=== PATIENT | female | born 1985 | race Caucasian/White ===

== ENCOUNTER 2021-06-20 21:58 | Emergency (ER) | payer MEDICAID ==
[2021-06-20 22:12] VITALS: BP 124/63
[2021-06-20] MEDS ORDERED: CHERRY SYRUP 10 ML UDC PO ONE (22:46)
[2021-06-20] MEDS ORDERED: DEXAMETHASONE 10 MG/ML VIAL PO STA (22:46)
[2021-06-20] MEDS ORDERED: KETOROLAC 30 MG/ML VIAL IM STA (22:46)
[2021-06-20] MEDS ORDERED: diphenhydrAMINE INJ 50 MG/ML VIAL IM STA (22:47)
[2021-06-20] MEDS ORDERED: LORazepam 2 MG/ML VIAL IM STA (23:27)
[2021-06-21] MEDS: HYDROcod/ACETAM 5/325 MG TABLET PO STA ×2 (00:09→00:12)
[2021-06-21] MEDS: HYDROcod/ACET 5/325 Prepack 4 PO STA ×2 (00:09→00:12)
--- NOTE | 2021-06-21 00:12 | XRAY Report ---
PROCEDURE: Forearm LT INDICATIONS: pain to forearm with movement TECHNIQUE: 2 views of the forearm were acquired. COMPARISON: None FINDINGS: Bones: No fractures or dislocations. No suspicious bony lesions. Soft tissues: No suspicious soft tissue calcifications or masses. IMPRESSION: Intact left forearm. Reviewed by: Teetee Valverde MD on 06/21/2021 12:11 AM PST Approved by: Teetee Valverde MD on 06/21/2021 12:11 AM PST Station ID: [id number]
[2021-06-21] MEDS ORDERED: oxyCODONE 5 MG TABLET PO STA (00:20)
[2021-06-21] MEDS ORDERED: oxyCODONE/ACET 5/325 Prepack 4 PO STA (00:20)
--- NOTE | 2021-06-21 00:24 | ED Physician Documentation ---
History of Present Illness - Stated complaint Stated Complaint: LT ARM PX - Chief complaint Chief Complaint: General - History obtained from History obtained from: Patient - History of Present Illness Timing: How many days ago (2) - Additonal information Additional information: Luana Larsen is a 36-year-old female who has a stress-induced seizure disorder she will have complex partial seizure and she last had a complex partial seizure 3 years ago involving her left arm and at that time she had complete flexion of the arm and resulting in a severe tendinitis that took quite some time to improve. She was playing with her dog and throwing a ball several days ago when she had recurrence of her symptoms she is now having worsening symptoms and is having difficulty with pain and with any movement of her arm. Severe pain, out of proportion to any injury. 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 - Present Medications Home Medications: Ambulatory Orders Medication Instructions Recorded Confirmed Oxycodone HCl/Acetaminophen 1 - 2 each PO Q6H PRN #14 tablet 06/21/21 [Percocet 5-325 mg Tablet] - Allergies Allergies/Adverse Reactions: Allergies Allergy/AdvReac Type Severity Reaction Status Date / Time azithromycin Allergy Hives Verified 06/20/21 22:14 penicillin G Allergy Hives Verified 06/20/21 22:14 promethazine [From Phenergan] Allergy Hallucinati Verified 06/20/21 22:14 ons shellfish derived Allergy Respiratory Verified 06/20/21 22:14 - Social History Does the pt smoke?: No Smoking Status: Never smoker Does the pt drink ETOH?: Yes Does the pt have substance abuse?: No Substance Use and Type: Marijuana - Immunizations Immunizations are current?: Yes - POLST Patient has POLST: No PD ED PE NORMAL - Vitals Vital signs reviewed: Yes (normal) - General General: Alert and oriented X 3, Well developed/nourished, Other (emotional and in tears with pain ) - HEENT HEENT: Atraumatic, PERRL, EOMI - Neck Neck: Supple, no meningeal sign - Respiratory Respiratory: No respiratory distress - Derm Derm: Normal color, Warm and dry, No rash - Extremities Extremities: No deformity, No edema, Other (There is point tenderness to the forearm over the brachial radialis and with any flexion extension of the wrist there is pain radiating to this area as well flexion extension rotation of the forearm again pain to the right brachial radialis. 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, No motor deficit, No sensory deficit, Normal speech Eye Opening: Spontaneous Motor: Obeys Commands Verbal: Oriented GCS Score: 15 - Psych Psych: Normal mood, Normal affect Results - Vitals Vitals: Vital Signs - 24 hr 06/20/21 06/21/21 22:03 00:58 Temperature 37 C Heart Rate 91 Respiratory 16 18 Rate Blood Pressure 124/63 O2 Saturation 96 Oxygen O2 Source Room air - Rads (name of study) forearm Radiology: Prelim report reviewed (Impression: Intact left forearm), EMP read indepedently, See rad report PD MEDICAL DECISION MAKING - ED course Complexity details: reviewed results, re-evaluated patient, considered differential, d/w patient ED course: 36-year-old female with an acute tendinitis has most of her symptoms centered around the brachial radialis and they seemed a bit out of proportion to any injury. She is administered dexamethasone and Toradol and benadryl without much relief. She has panic and is administered ativan. She is subsequently administered percocet PO. Departure - Departure Disposition: 01 Home, Self Care Clinical Impression: Forearm tendonitis Condition: Stable Instructions: Tendonitis and Tenosynovitis Follow-Up: Your, doctor [Other] Prescriptions: Oxycodone HCl/Acetaminophen [Percocet 5-325 mg Tablet] 1 - 2 each PO Q6H PRN #14 tablet PRN Reason: pain Comments: Luana, today it looks like you have some tendinitis that has flared up in your forearm. We have given you a dose of dexamethasone which may help for 2 days. If you find you get good relief of this and then have worsening of your symptoms again it would be reasonable to ask your doctor about a short course of prednisone. A prescription for Percocet has been E scribed to [facility] in [place]. Discharge Date/Time: 06/21/21 01:00
== END 2021-06-21 01:00 | disposition home or self-care (01) ==
LOC: ED 21:58
DX: M77.8 Other enthesopathies, not elsewhere classified (principal); M79.632 Pain in left forearm; F41.0 Panic disorder [episodic paroxysmal anxiety]
CPT/HCPCS: 73090; 96372; 99283; 99284; A9270; J1200; J2060

== ENCOUNTER 2021-07-16 20:44 | Emergency (ER) | payer MEDICAID ==
[2021-07-16 21:15] LABS: BASOPHILS % (AUTO) 0.7 %; EOSINOPHILS # (AUTO) 0.1 10^3/uL (0.0-0.7); EOSINOPHILS % (AUTO) 1.3 %; HCT - HEMATOCRIT 35.6 % (37.0-47.0); HGB - HEMOGLOBIN 12.3 g/dL (12.0-16.0); LYMPHOCYTES # (AUTO) 1.6 10^3/uL (1.5-3.5); MEAN CORPUSCULAR HEMOGLOBIN 30.8 pg (27.0-31.0); MEAN CORPUSCULAR HGB CONC 34.6 g/dL (32.0-36.0); MEAN PLATELET VOLUME 9.2 fL (7.9-10.8); MONOCYTES # (AUTO) 0.4 10^3/uL (0.0-1.0); MONOCYTES % (AUTO) 8.1 %; NEUTROPHILS # (AUTO) 3.2 10^3/uL (1.5-6.6); NEUTROPHILS % (AUTO) 59.3 %; PLT - PLATELET COUNT 245 10^3/uL (130-450); RED CELL DISTRIBUTION WIDTH 12.2 % (12.0-15.0); WHITE BLOOD COUNT 5.4 x10^3/uL (4.8-10.8)
[2021-07-16 21:27] LABS: ALBUMIN 4.3 g/dL (3.2-5.5); ALBUMIN/GLOBULIN RATIO 1.3 (1.0-2.2); BILIRUBIN,TOTAL 0.4 mg/dL (0.2-1.0); CALCIUM 9.1 mg/dL (8.5-10.3); CREATININE 0.9 mg/dL (0.4-1.0); TOTAL PROTEIN 7.5 g/dL (6.7-8.2)
[2021-07-16 21:37] LABS: HCG UR QUAL NEGATIVE
[2021-07-16] MEDS ORDERED: oxyCODONE 5 MG TABLET PO STA (21:52)
--- NOTE | 2021-07-16 21:54 | ED Physician Documentation ---
History of Present Illness - Stated complaint Stated Complaint: FEMALE /BLEED - Chief complaint Chief Complaint: Abd Pain - History obtained from History obtained from: Patient - Additonal information Additional information: 36-year-old woman With past medical history of ovarian cysts, heavy menstrual bleeding for the past 2 years after having her tubes removed in [place], presents with heavy menses since yesterday morning. Patient states that she gets her period regularly every 30 days and her period started on time yesterday. She noticed that she was passing blood clots and started to e xperience gradual onset moderate severity bilateral lower abdominal cramping, worse on the right versus the left, radiating to the back that is consistent with her menses over the past couple years. Improved with oxycodone.Denies urinary symptoms.Patient has a past surgical history of and D&C. She had her tubes removed "because I was done having kids". No PCP or tobacco grower at present. denies dizziness, nausea, other symptoms. Review of Systems Ten Systems: 10 systems reviewed and negative Constitutional: denies: Fever, Chills GI: reports: Abdominal Pain. denies: Nausea, Vomiting, Constipation, Diarrhea : reports: Vaginal bleeding. 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: No Smoking Status: Never smoker Does the pt drink ETOH?: Yes Does the pt have substance abuse?: No - Immunizations Immunizations are current?: Yes - POLST Patient has POLST: No PD ED PE NORMAL - Vitals Vital signs reviewed: Yes - General General: Alert and oriented X 3, No acute distress, Well developed/nourished - HEENT HEENT: Atraumatic, PERRL, EOMI - Neck Neck: Supple, no meningeal sign - Cardiac Cardiac: RRR - Respiratory Respiratory: No respiratory distress, Clear bilaterally - Abdomen Abdomen: Non tender, Non distended - Back Back: No CVA TTP - Derm Derm: Normal color, Warm and dry - Extremities Extremities: No deformity - Neuro Neuro: Alert and oriented X 3, No motor deficit, No sensory deficit - Psych Psych: Normal mood, Normal affect Results - Vitals Vitals: Vital Signs - 24 hr 07/16/21 07/16/21 20:49 21:31 Temperature 36.5 C Heart Rate 86 82 Respiratory 16 18 Rate Blood Pressure 96/54 L 115/75 O2 Saturation 94 98 Oxygen O2 Source Room air - Labs Labs: Laboratory Tests 07/16/21 07/16/21 07/16/21 20:58 21:04 21:04 WBC 5.4 RBC 4.00 L Hgb 12.3 Hct 35.6 L MCV 89.0 MCH 30.8 MCHC 34.6 RDW 12.2 Plt Count 245 MPV 9.2 Neut # (Auto) 3.2 Lymph # (Auto) 1.6 Storey # (Auto) 0.4 Eos # (Auto) 0.1 Baso # (Auto) 0.0 Absolute Nucleated RBC 0.00 Nucleated RBC % 0.0 Sodium 135 Potassium 4.0 Chloride 102 Carbon Dioxide 25 Anion Gap 8.0 BUN 11 Creatinine 0.9 Estimated GFR (MDRD) 71 L Glucose 95 Calcium 9.1 Total Bilirubin 0.4 AST 18 ALT 15 Alkaline Phosphatase 53 Total Protein 7.5 Albumin 4.3 Globulin 3.2 Albumin/Globulin Ratio 1.3 Lipase 26 Urine HCG, Qual NEGATIVE PD MEDICAL DECISION MAKING - ED course ED course: 36-year-old woman presents with heavy menses and abdominal cramping over the past 2 years, starting again yesterday morning. Patient has normal vital signs and normal exam as well as normal hemoglobin level. Advised her to follow-up with Dr. Cohen. Return precautions given. Departure - Departure Disposition: 01 Home, Self Care Clinical Impression: Episode of heavy vaginal bleeding, Abdominal cramping Instructions: ED Bleeding Menstrual Heavy Follow-Up: Lexi Cohen MD [Provider Admit Priv/Credential] - Comments: You are seen in the emergency department for evaluation of heavy menstrual bleeding. Your blood levels were normal and your vital signs are normal. Please follow-up with Dr. Cohen, our COUNTERPERSON at [facility]. You can also follow-up with any other COUNTERPERSON. Return to the emergency department if you have new or worsening symptoms or other concerns. Take ibuprofen 400 to 600 mg every 6 hours as needed for pain.
[2021-07-16 22:00] VITALS: BP 112/71
== END 2021-07-16 22:04 | disposition home or self-care (01) ==
LOC: ED 20:44
DX: N92.0 Excessive and frequent menstruation with regular cycle (principal); R10.31 Right lower quadrant pain; R10.32 Left lower quadrant pain
CPT/HCPCS: 36415; 80053; 81025; 83690; 85025; 99283; 99284; A9270

== ENCOUNTER 2022-01-05 14:13 | Emergency (ER) | payer MEDICAID ==
[2022-01-05 14:29] VITALS: BP 105/69
--- NOTE | 2022-01-05 15:12 | XRAY Report ---
PROCEDURE: Hand 3 View LT INDICATIONS: Trauma TECHNIQUE: 3 views of the hand(s) acquired. COMPARISON: None FINDINGS: Bones: No fractures or dislocations. No suspicious bony lesions. Soft tissues: No suspicious soft tissue calcifications. IMPRESSION: No acute left hand fracture or dislocation. Reviewed by: Vance Medrano MD on 01/05/2022 3:10 PM PDT Approved by: Vance Medrano MD on 01/05/2022 3:10 PM PDT Station ID: [id number]
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
== END 2022-01-05 15:46 | disposition home or self-care (01) ==
LOC: ED 14:13
DX: S60.222A Contusion of left hand, initial encounter (principal); W51.XXXA Accidental striking against or bumped into by another person, initial encounter; Y93.89 Activity, other specified
CPT/HCPCS: 99282; 99283

== ENCOUNTER 2022-03-29 09:59 | Emergency (ER) | payer MEDICAID ==
--- NOTE | 2022-03-29 10:54 | XRAY Report ---
PROCEDURE: Chest 1 View X-Ray INDICATIONS: SOA TECHNIQUE: One view of the chest was acquired. COMPARISON: None FINDINGS: Surgical changes and devices: None. Lungs and pleura: No pleural effusions or pneumothorax. Lungs are clear. Mediastinum: Mediastinal contours appear normal. Heart size is normal. Bones and chest wall: No suspicious bony lesions. Overlying soft tissues appear unremarkable. IMPRESSION: No acute pulmonary process. Reviewed by: Kerri Whiting MD on 03/29/2022 10:53 AM PDT Approved by: Kerri Whiting MD on 03/29/2022 10:53 AM PDT Station ID: [id number]
[2022-03-29] MEDS ORDERED: KETOROLAC 60 MG/2 ML VIAL IM STA (11:15)
[2022-03-29] MEDS ORDERED: ONDANSETRON ODT 4 MG TABLET TL STA (11:15)
[2022-03-29] MEDS ORDERED: LORazepam 1 MG TABLET PO STA (11:15)
--- NOTE | 2022-03-29 11:19 | ED Physician Documentation ---
History of Present Illness - Stated complaint Stated Complaint: C+/SOA/CP - Chief complaint Chief Complaint: Resp - History obtained from History obtained from: Patient - History of Present Illness Timing: How many days ago (2) Pain level max: 8 Pain level now: 8 - Additonal information Additional information: Patient is a 37-year-old female tested positive for COVID 2 days ago. She states that she has sharp chest pain with coughing. She states that she will have coughing fits where it causes her to vomit. She has had fevers and chills as well. The pain does not radiate. Dry cough. No wheezing. No stridor. She has had COVID vaccinations previously, last was about 1.5 years ago Patient is not , breast-feeding or trying to become . 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 - Present Medications Home Medications: Ambulatory Orders Medication Instructions Recorded Confirmed Fluoxetine HCl [Prozac] 40 mg PO DAILY #120 cap 02/03/22 03/29/22 lamoTRIgine [Lamictal] 200 mg PO BID #240 tablet 02/03/22 03/29/22 Benzonatate [Tessalon] 200 mg PO TID PRN #30 cap 03/29/22 Gabapentin [Neurontin] 600 mg PO BID 03/29/22 03/29/22 LORazepam [Ativan] 0.5 mg PO Q6H PRN #10 tablet 03/29/22 Meloxicam [Mobic] 7.5 mg PO BID PRN #20 tablet 03/29/22 Ondansetron Odt [Zofran] 4 mg TL Q6H PRN #10 tablet 03/29/22 - Allergies Allergies/Adverse Reactions: Allergies Allergy/AdvReac Type Severity Reaction Status Date / Time azithromycin Allergy Hives Verified 03/29/22 10:20 penicillin G Allergy Hives Verified 03/29/22 10:20 promethazine [From Phenergan] Allergy Hallucinati Verified 03/29/22 10:20 ons shellfish derived Allergy Respiratory Verified 03/29/22 10:20 - Social History Does the pt smoke?: No Smoking Status: Never smoker Does the pt drink ETOH?: Yes Does the pt have substance abuse?: No - Immunizations Immunizations are current?: Yes - POLST Patient has POLST: No PD ED PE NORMAL - Vitals Vital signs reviewed: Yes - General General: Alert and oriented X 3, No acute distress - HEENT HEENT: Ears normal, Moist mucous membranes, Pharynx benign - Neck Neck: Supple, no meningeal sign, No adenopathy - Cardiac Cardiac: RRR, Strong equal pulses - Respiratory Respiratory: No respiratory distress, Clear bilaterally - Abdomen Abdomen: Soft, Non tender, Non distended - Derm Derm: Warm and dry - Extremities Extremities: No edema, No calf tenderness / cord - Neuro Neuro: Alert and oriented X 3 Results - Vitals Vitals: Vital Signs - 24 hr 03/29/22 03/29/22 10:20 11:32 Temperature 37.6 C Heart Rate 86 74 Respiratory 20 12 Rate Blood Pressure 103/73 122/76 O2 Saturation 98 100 Oxygen O2 Source Room air - Rads (name of study) cxr Radiology: Final report received, EMP read contemporaneously, See rad report (no acute abnormality) PD MEDICAL DECISION MAKING - ED course Complexity details: reviewed results, re-evaluated patient, considered differential (No ST elevation DE, no aortic dissection, no PE, no tension pneumothorax, no aortic aneurysm), d/w patient ED course: Patient with chest pain with coughing. She is positive for COVID. Symptoms are not consistent with acute coronary syndrome. Not consistent with pulmonary embolus. No evidence of myocarditis or pericarditis. The pain is with coughing, sharp. Patient is very well-appearing, nontoxic. Discussed antiviral medication but will hold this at this time. We will continue supportive care and have her follow-up closely with her doctor for further care. Patient counseled regarding signs and symptoms for which I believe and urgent re- evaluation would be necessary. Patient with good understanding of and agreement to plan and is comfortable going home at this time This document was made in part using voice recognition software. While efforts are made to proofread this document, sound alike and grammatical errors may occur. Patient also states that she is out of her Ativan and is requesting a small amount of Ativan to help with her anxiety at home. Departure - Departure Disposition: Home, Self Care Clinical Impression: COVID, Anxiety Condition: Good Instructions: ED Viral Syndrome Follow-Up: your,doctor in 1 week [Other] Prescriptions: LORazepam [Ativan] 0.5 mg PO Q6H PRN #10 tablet PRN Reason: Anxiety Meloxicam [Mobic] 7.5 mg PO BID PRN #20 tablet PRN Reason: Pain Benzonatate [Tessalon] 200 mg PO TID PRN #30 cap PRN Reason: Cough Ondansetron Odt [Zofran] 4 mg TL Q6H PRN #10 tablet PRN Reason: Nausea / Vomiting Comments: Use the medications as prescribed. Please follow-up with your doctor for further care. Return if you worsen. Your prescriptions were sent to [facility] in [place]. Isolation precautions for COVID Day 0 is your first day of symptoms or a positive viral test. Day 1 is the first full day after your symptoms developed or your test specimen was collected. If you have COVID-19 or have symptoms, isolate for at least 5 days. IF YOU: Tested positive for COVID-19 or have symptoms, regardless of vaccination status Stay home for at least 5 days Stay home for 5 days and isolate from others in your home. Wear a well-fitting mask if you must be around others in your home. Do not travel. Ending isolation if you had symptoms End isolation after 5 full days if you are fever-free for 24 hours (without the use of fever-reducing medication) and your symptoms are improving. Ending isolation if you did NOT have symptoms End isolation after at least 5 full days after your positive test. If you got very sick from COVID-19 or have a weakened immune system You should isolate for at least 10 days. Consult your doctor before ending isolation. Take precautions until day 10 Wear a well-fitting mask Wear a well-fitting mask for 10 full days any time you are around others inside your home or in public. Do not go to places where you are unable to wear a mask. Do not travel Do not travel until a full 10 days after your symptoms started or the date your positive test was taken if you had no symptoms. Avoid being around people who are more likely to get very sick from COVID-19. Discharge Date/Time: 03/29/22 11:45
[2022-03-29 11:33] VITALS: BP 122/76
== END 2022-03-29 11:45 | disposition home or self-care (01) ==
LOC: ED 09:59
DX: U07.1 COVID-19 (principal); R07.9 Chest pain, unspecified; F41.9 Anxiety disorder, unspecified
CPT/HCPCS: 71045; 96372; 99284; J8499; Q0162

== ENCOUNTER 2022-04-22 12:24 | Emergency (ER) | payer MEDICAID ==
[2022-04-22 12:39] LABS: BASOPHILS % (AUTO) 0.6 %; EOSINOPHILS % (AUTO) 0.8 %; HCT - HEMATOCRIT 36.5 % (37.0-47.0); HGB - HEMOGLOBIN 12.3 g/dL (12.0-16.0); LYMPHOCYTES # (AUTO) 1.3 10^3/uL (1.5-3.5); LYMPHOCYTES % (AUTO) 23.7 %; MEAN CORPUSCULAR HEMOGLOBIN 31.5 pg (27.0-31.0); MEAN CORPUSCULAR HGB CONC 33.7 g/dL (32.0-36.0); MEAN CORPUSCULAR VOLUME 93.4 fL (81.0-99.0); MONOCYTES # (AUTO) 0.4 10^3/uL (0.0-1.0); MONOCYTES % (AUTO) 7.3 %; NEUTROPHILS # (AUTO) 3.6 10^3/uL (1.5-6.6); NEUTROPHILS % (AUTO) 67.4 %; PLT - PLATELET COUNT 251 10^3/uL (130-450); RED BLOOD COUNT 3.91 10^6/uL (4.20-5.40); RED CELL DISTRIBUTION WIDTH 13.4 % (12.0-15.0); WHITE BLOOD COUNT 5.3 x10^3/uL (4.8-10.8)
[2022-04-22 12:55] LABS: ALBUMIN 4.5 g/dL (3.2-5.5); ALBUMIN/GLOBULIN RATIO 1.5 (1.0-2.2); BILIRUBIN,TOTAL 0.5 mg/dL (0.2-1.0); CALCIUM 9.7 mg/dL (8.5-10.3); CREATININE 0.9 mg/dL (0.4-1.0); POTASSIUM 3.8 mmol/L (3.5-5.0); TOTAL PROTEIN 7.6 g/dL (6.7-8.2)
[2022-04-22] MEDS ORDERED: HYDROmorphone 1 MG/ML CARPUJECT IVP STA (13:41)
[2022-04-22] MEDS ORDERED: HYDROmorphone 1 MG/ML CARPUJECT IM STA (13:42)
--- NOTE | 2022-04-22 13:45 | ED Physician Documentation ---
History of Present Illness - Stated complaint Stated Complaint: ABD PX - Chief complaint Chief Complaint: Abd Pain - Additonal information Additional information: 37-year-old female presents emergency department for evaluation of pelvic cramp ing and vaginal bleeding. She reports that she has a history of ovarian cyst. She also has a history of a tubal ligation. She states that when she has bad ovarian cyst she has heavier periods. She had vaginal bleeding last night and states that she is saturating a menstrual pad an hour. No fevers or vomiting. She does appear uncomfortable in the room. Does not have an OB or primary care here in [facility] but is scheduled to establish with one next month. Patient does show me a picture on her cell phone of blood clots in the toilet which appear to be a small volume in nature and what I would assume to be typical with menstrual bleeding Review of Systems Constitutional: denies: Fever, Chills Throat: reports: Reviewed and negative Cardiac: reports: Reviewed and negative Respiratory: reports: Reviewed and negative GI: reports: Abdominal Pain. denies: Nausea, Vomiting : reports: LMP (03/26/2022), Vaginal bleeding. 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 - Present Medications Home Medications: Ambulatory Orders Medication Instructions Recorded Confirmed Fluoxetine HCl [Prozac] 40 mg PO DAILY #120 cap 02/03/22 03/29/22 lamoTRIgine [Lamictal] 200 mg PO BID #240 tablet 02/03/22 03/29/22 Benzonatate [Tessalon] 200 mg PO TID PRN #30 cap 03/29/22 Gabapentin [Neurontin] 600 mg PO BID 03/29/22 03/29/22 LORazepam [Ativan] 0.5 mg PO Q6H PRN #10 tablet 03/29/22 Meloxicam [Mobic] 7.5 mg PO BID PRN #20 tablet 03/29/22 Ondansetron Odt [Zofran] 4 mg TL Q6H PRN #10 tablet 03/29/22 - Allergies Allergies/Adverse Reactions: Allergies Allergy/AdvReac Type Severity Reaction Status Date / Time azithromycin Allergy Hives Verified 04/22/22 12:30 levetiracetam [From Keppra] Allergy Anxiety Verified 04/22/22 12:30 penicillin G Allergy Hives Verified 04/22/22 12:30 promethazine [From Phenergan] Allergy Hallucinati Verified 04/22/22 12:30 ons shellfish derived Allergy Respiratory Verified 04/22/22 12:30 - Social History Does the pt smoke?: No Smoking Status: Never smoker Does the pt drink ETOH?: Yes Does the pt have substance abuse?: No - Immunizations Immunizations are current?: Yes - POLST Patient has POLST: No PD ED PE NORMAL - General General: Alert and oriented X 3, No acute distress - HEENT HEENT: PERRL - Neck Neck: Supple, no meningeal sign, No adenopathy - Cardiac Cardiac: RRR, No murmur - Respiratory Respiratory: No respiratory distress, Clear bilaterally - Abdomen Abdomen: Normal bowel sounds, Soft. No: Non tender (Mild lower pelvic tenderness without guarding or rebound. Negative McBurney's. Nonfocal. 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 Eye Opening: Spontaneous Motor: Obeys Commands Verbal: Oriented GCS Score: 15 Results - Vitals Vitals: Vital Signs - 24 hr 04/22/22 12:26 Heart Rate 99 Respiratory 14 Rate Blood Pressure 97/79 O2 Saturation 98 Oxygen O2 Source Room air - Labs Labs: Laboratory Tests 04/22/22 04/22/22 04/22/22 12:36 12:36 13:46 WBC 5.3 RBC 3.91 L Hgb 12.3 Hct 36.5 L MCV 93.4 MCH 31.5 H MCHC 33.7 RDW 13.4 Plt Count 251 MPV 9.0 Neut # (Auto) 3.6 Lymph # (Auto) 1.3 L [place] # (Auto) 0.4 Eos # (Auto) 0.0 Baso # (Auto) 0.0 Absolute Nucleated RBC 0.00 Nucleated RBC % 0.0 Sodium 139 Potassium 3.8 Chloride 105 Carbon Dioxide 27 Anion Gap 7.0 BUN 13 Creatinine 0.9 Estimated GFR (MDRD) 71 L Glucose 68 L Calcium 9.7 Total Bilirubin 0.5 AST 18 ALT 15 Alkaline Phosphatase 59 Total Protein 7.6 Albumin 4.5 Globulin 3.1 Albumin/Globulin Ratio 1.5 Lipase 35 Urine Color YELLOW Urine Clarity CLEAR Urine pH 7.0 Ur Specific [place] 1.020 Urine Protein NEGATIVE Urine Glucose (UA) NEGATIVE Urine Ketones NEGATIVE Urine Occult Blood MODERATE H Urine Nitrite NEGATIVE Urine Bilirubin NEGATIVE Urine Urobilinogen 0.2 (NORMAL) Ur Leukocyte Esterase NEGATIVE Urine RBC 6-10 H Urine WBC 0-3 Ur Squamous Epith Cells FEW Squamous Urine Bacteria Rare Ur Microscopic Review INDICATED Urine Culture Comments NOT INDICATED Urine HCG, Qual 04/22/22 13:46 WBC RBC Hgb Hct MCV MCH MCHC RDW Plt Count MPV Neut # (Auto) Lymph # (Auto) [place] # (Auto) Eos # (Auto) Baso # (Auto) Absolute Nucleated RBC Nucleated RBC % Sodium Potassium Chloride Carbon Dioxide Anion Gap BUN Creatinine Estimated GFR (MDRD) Glucose Calcium Total Bilirubin AST ALT Alkaline Phosphatase Total Protein Albumin Globulin Albumin/Globulin Ratio Lipase Urine Color Urine Clarity Urine pH Ur Specific [place] Urine Protein Urine Glucose (UA) Urine Ketones Urine Occult Blood Urine Nitrite Urine Bilirubin Urine Urobilinogen Ur Leukocyte Esterase Urine RBC Urine WBC Ur Squamous Epith Cells Urine Bacteria Ur Microscopic Review Urine Culture Comments Urine HCG, Qual NEGATIVE - Rads (name of study) pelvic US Radiology: See rad report, Other (Per ophthalmic medical technologist resolving ovarian cyst. No findings of torsion. Thickened endometrium consistent with menstrual cycle) PD MEDICAL DECISION MAKING - ED course Complexity details: reviewed results, re-evaluated patient, considered differential, d/w patient ED course: 37-year-old female presents emergency department for evaluation of 2 days menorrhagia. Last menstrual cycle was on 26 March. She states that when she has ovarian cyst she has painful cycles. Here in the emergency department she did appear uncomfortable but had nonfocal and nonperitoneal pelvic exam. A CBC was completed that shows a healthy hemoglobin at 12.4. No thrombocytopenia. Urine showed no signs of . Patient was given a one-time dose of Dilaudid here in the ER which she stated did not help her pain. Pelvic ultrasound was completed and shows a resolving ovarian cyst and a mildly thickened endometrium consistent with her menstrual cycle. No worrisome findings suggest torsion. I discussed the imaging findings with the patient discussed the routine management of menorrhagia which is typically conservative in nature and can include NSAIDs and Tylenol as well as warm compress. I have encouraged her to request OB referral when she sees her PCP in a few weeks. She is interested in having a partial hysterectomy. The patient had reported passing heavy volumes of blood and clot at home though here in the emergency department there have been no findings to suggest this. She is discharged home in stable condition. Emergent return precautions discussed. Departure - Departure Disposition: Home, Self Care Clinical Impression: Ovarian cyst, right, Dysmenorrhea Condition: Stable Record reviewed to determine appropriate education?: Yes Instructions: ED Cramping Menstrual Comments: Luana you came to the emergency department today complaining of painful cramping with your menstrual cycle. The cycle seems to be a regular cycle as your last period was on 26 March. I am you reported heavy vaginal bleeding however here in the emergency department you have not had significant signs to suggest this. Your hemoglobin is very healthy at 12.4. We did do a pelvic ultrasound to evaluate for the possibility of ovaries and rule out ovarian torsion. The ultrasound does show a resolving cyst on the right ovary but no no findings to suggest poor blood flow or twisting of the ovaries. In general painful menstrual cycles are best managed with warm compress on the lower abdomen. Many women will find relief by taking an NSAID medication such as ibuprofen 600 mg with food 3 times a day or alternating Tylenol 500 mg 3 times a day. Sometimes painful cycles are best also regulated by the use of hormonal contraceptives. You seem interested in having a partial hysterectomy. This would be something to discuss closely with an OB though 1 is not indicated right now and typically conservative measures are attempted first. If despite the use of ibuprofen and Tylenol at home you are having worsening symptoms, develop fevers or have uncontrolled vomiting or any fainting episodes and please return immediately to the ER for second evaluation.
[2022-04-22 13:53] LABS: BILIRUBIN,URINE NEGATIVE (NEGATIVE); GLUCOSE, URINE (UA) NEGATIVE (NEGATIVE); KETONES,URINE (UA) NEGATIVE (NEGATIVE); LEUKOCYTE ESTERASE, URINE NEGATIVE (NEGATIVE); NITRITE,URINE NEGATIVE (NEGATIVE); OCCULT BLOOD,URINE MODERATE (NEGATIVE); PROTEIN,URINE NEGATIVE (NEGATIVE); UROBILINOGEN,URINE 0.2 (NORMAL) E.U./dL (NORMAL)
[2022-04-22 13:55] LABS: HCG UR QUAL NEGATIVE
[2022-04-22 13:56] LABS: CLARITY,URINE CLEAR (CLEAR)
[2022-04-22 14:03] LABS: WBC,URINE 0-3 /HPF (0-5)
[2022-04-22 14:04] LABS: BACTERIA,URINE Rare /HPF (None Seen); SQUAMOUS EPITHELIAL CELL,UR FEW Squamous (<= Few)
[2022-04-22 15:21] VITALS: BP 102/79
--- NOTE | 2022-04-22 15:52 | Ultrasound Report ---
PROCEDURE: Pelvic w/Transvag+Doppler Comp INDICATIONS: pelvic cramping; menorrhagia TECHNIQUE: Real-time scanning was performed of the pelvic organs, with image documentation. Additional endovagi nal scanning was necessary due to incomplete visualization of the adnexal and endometrial structures by transabdominal scanning. Doppler interrogation was performed of the ovaries bilaterally. COMPARISON: None. FINDINGS: No pathologic free abdominal or pelvic fluid. Uterus: Uterus is normal in size at 7.2 x 4.5 x 3.2 cm. The endometrium measures 7 mm in combined t hickness. Ovaries: Right ovary measures 2.1 x 1.7 x 1.5 cm, volume 3 cc. Small corpus luteum measures up to 8 mm. Left ovary measures 2.6 x 2.1 x 1.8 cm, volume 5 cc. Normal appearing arterial and venous waveforms are confirmed to each ovary.] Other: No free pelvic fluid. IMPRESSION: 1. Endometrium measures 7 mm without a focal lesion or abnormal vascularity visualized. 2. Unremarkable sonographic appearance of the ovaries. Reviewed by: Ottoniel Saunders MD on 04/22/2022 3:50 PM PDT Approved by: Ottoniel Saunders MD on 04/22/2022 3:50 PM PDT Station ID: [id number]
== END 2022-04-22 15:37 | disposition home or self-care (01) ==
LOC: ED 12:24
DX: N83.201 Unspecified ovarian cyst, right side (principal); N94.6 Dysmenorrhea, unspecified
CPT/HCPCS: 36415; 76830; 76856; 80053; 81001; 81025; 83690; 85025; 93975; 96372; 99282; 99284; J1170; 81003; 87086

== ENCOUNTER 2023-02-23 12:02 | Emergency (ER) | payer MEDICAID ==
[2023-02-23 12:52] LABS: BASOPHILS % (AUTO) 0.6 %; EOSINOPHILS % (AUTO) 0.6 %; HCT - HEMATOCRIT 36.9 % (37.0-47.0); HGB - HEMOGLOBIN 12.5 g/dL (12.0-16.0); LYMPHOCYTES # (AUTO) 1.5 10^3/uL (1.5-3.5); LYMPHOCYTES % (AUTO) 27.3 %; MEAN CORPUSCULAR HGB CONC 33.9 g/dL (32.0-36.0); MEAN CORPUSCULAR VOLUME 91.6 fL (81.0-99.0); MEAN PLATELET VOLUME 9.3 fL (7.9-10.8); MONOCYTES # (AUTO) 0.3 10^3/uL (0.0-1.0); MONOCYTES % (AUTO) 4.8 %; NEUTROPHILS # (AUTO) 3.6 10^3/uL (1.5-6.6); NEUTROPHILS % (AUTO) 66.5 %; PLT - PLATELET COUNT 234 10^3/uL (130-450); RED BLOOD COUNT 4.03 10^6/uL (4.20-5.40); RED CELL DISTRIBUTION WIDTH 12.1 % (12.0-15.0); WHITE BLOOD COUNT 5.4 x10^3/uL (4.8-10.8)
[2023-02-23 13:07] LABS: ALBUMIN 4.7 g/dL (3.2-5.5)
[2023-02-23 13:16] LABS: ALBUMIN/GLOBULIN RATIO 1.9 (1.0-2.2); BILIRUBIN,TOTAL 0.6 mg/dL (0.2-1.0); CREATININE 0.8 mg/dL (0.6-1.3); POTASSIUM 3.5 mmol/L (3.5-4.5); TOTAL PROTEIN 7.2 g/dL (6.4-8.9)
[2023-02-23 13:17] LABS: BILIRUBIN,URINE NEGATIVE (NEGATIVE); GLUCOSE, URINE (UA) NEGATIVE (NEGATIVE); KETONES,URINE (UA) NEGATIVE (NEGATIVE); LEUKOCYTE ESTERASE, URINE NEGATIVE (NEGATIVE); NITRITE,URINE NEGATIVE (NEGATIVE); OCCULT BLOOD,URINE LARGE (NEGATIVE); PROTEIN,URINE NEGATIVE (NEGATIVE); UROBILINOGEN,URINE 0.2 (NORMAL) E.U./dL (NORMAL)
[2023-02-23 13:20] LABS: CLARITY,URINE CLEAR (CLEAR); HCG UR QUAL NEGATIVE
[2023-02-23 13:29] LABS: BACTERIA,URINE None Seen /HPF (None Seen); SQUAMOUS EPITHELIAL CELL,UR FEW Squamous (<= Few); WBC,URINE 0-3 /HPF (0-5)
[2023-02-23] MEDS ORDERED: ONDANSETRON 4 MG/2 ML VIAL IVP STA (14:25)
[2023-02-23] MEDS ORDERED: KETOROLAC 30 MG/ML VIAL IVP STA (14:25)
[2023-02-23] MEDS ORDERED: MORPHINE 2 MG/ML CARPUJECT IVP STA ×2 (14:25→16:24)
[2023-02-23] MEDS ORDERED: SODIUM CHLORIDE 0.9% 1,000 ML IV STA (14:25)
--- NOTE | 2023-02-23 14:29 | ED Physician Documentation ---
PD HPI ABD PAIN - Stated complaint Stated Complaint: ABD PX - Chief complaint Chief Complaint: Abd Pain - History obtained from History obtained from: Patient - Additional information Additional information: Patient is a 37-year-old female with a prior history of tubal ligation presenting for evaluation of right lower quadrant pain that is been present since yesterday that feels worse than her usual cramping. She also started her menstrual cycle yesterday. She has associated nausea and vomiting which she does not usually have with her cramps. She has tried Excedrin and Midol without any improvement. She denies dysuria or abnormal vaginal discharge. She has not been able to keep any oral intake down since yesterday. No fevers. No chest pain or shortness of air. Review of Systems Constitutional: denies: Fever Cardiac: denies: Chest pain / pressure Respiratory: denies: Dyspnea GI: reports: Abdominal Pain, Nausea, Vomiting : reports: Vaginal bleeding. 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, 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 - Present Medications Home Medications: Ambulatory Orders Medication Instructions Recorded Confirmed Fluoxetine HCl [Prozac] 40 mg PO DAILY #120 cap 02/03/22 03/29/22 lamoTRIgine [Lamictal] 200 mg PO BID #240 tablet 02/03/22 03/29/22 Benzonatate [Tessalon] 200 mg PO TID PRN #30 cap 03/29/22 Gabapentin [Neurontin] 600 mg PO BID 03/29/22 03/29/22 LORazepam [Ativan] 0.5 mg PO Q6H PRN #10 tablet 03/29/22 Meloxicam [Mobic] 7.5 mg PO BID PRN #20 tablet 03/29/22 Ondansetron Odt [Zofran] 4 mg TL Q6H PRN #10 tablet 03/29/22 Amox/Clav 875/125 [Augmentin] 1 each PO Q12H #14 tablet 02/23/23 HYDROcod/ACETAM 5/325 [[place] 5/325] 1 tablet PO Q6H PRN #10 tablet 02/23/23 Ondansetron Odt [Zofran] 4 mg TL Q6H PRN #10 tablet 02/23/23 - Allergies Allergies/Adverse Reactions: Allergies Allergy/AdvReac Type Severity Reaction Status Date / Time azithromycin Allergy Hives Verified 02/23/23 12:24 levetiracetam [From Keppra] Allergy Anxiety Verified 02/23/23 12:24 penicillin G Allergy Hives Verified 02/23/23 12:24 promethazine [From Phenergan] Allergy Hallucinati Verified 02/23/23 12:24 ons shellfish derived Allergy Respiratory Verified 02/23/23 12:24 - Social History Does the pt smoke?: No Smoking Status: Never smoker Does the pt drink ETOH?: Yes Does the pt have substance abuse?: No - Immunizations Immunizations are current?: Yes - POLST Patient has POLST: No PD ED PE NORMAL - General General: Alert and oriented X 3, No acute distress, Well developed/nourished - HEENT HEENT: Atraumatic, Moist mucous membranes, Pharynx benign - Neck Neck: Supple, no meningeal sign - Cardiac Cardiac: RRR, No murmur - Respiratory Respiratory: No respiratory distress, Clear bilaterally - Abdomen Abdomen: Normal bowel sounds, Soft, Non distended, Other (Right lower quadrant tenderness to palpation; No rebound, no guarding) - Derm Derm: Warm and dry - Neuro Neuro: Alert and oriented X 3, No motor deficit, Normal speech Results - Vitals Vitals: Vital Signs - 24 hr 02/23/23 02/23/23 02/23/23 12:24 14:53 16:16 Temperature 36.5 C Heart Rate 87 74 79 Respiratory 16 12 17 Rate Blood Pressure 103/69 111/86 H 114/87 H O2 Saturation 100 100 100 Oxygen O2 Source Room air - Labs Labs: Laboratory Tests 02/23/23 02/23/23 02/23/23 12:47 12:47 13:02 WBC 5.4 RBC 4.03 L Hgb 12.5 Hct 36.9 L MCV 91.6 MCH 31.0 MCHC 33.9 RDW 12.1 Plt Count 234 MPV 9.3 Neut # (Auto) 3.6 Lymph # (Auto) 1.5 [place] # (Auto) 0.3 Eos # (Auto) 0.0 Baso # (Auto) 0.0 Absolute Nucleated RBC 0.00 Nucleated RBC % 0.0 Sodium 139 Potassium 3.5 Chloride 105 Carbon Dioxide 30 Anion Gap 4.0 L BUN 11 Creatinine 0.8 Estimated GFR (MDRD) 81 L Glucose 59 L* POC Whole Bld Glucose Calcium 10.0 Total Bilirubin 0.6 AST 13 ALT 10 Alkaline Phosphatase 51 Total Protein 7.2 Albumin 4.7 Globulin 2.5 Albumin/Globulin Ratio 1.9 Lipase 30 Urine Color YELLOW Urine Clarity CLEAR Urine pH 7.0 Ur Specific [place] 1.010 Urine Protein NEGATIVE Urine Glucose (UA) NEGATIVE Urine Ketones NEGATIVE Urine Occult Blood LARGE H Urine Nitrite NEGATIVE Urine Bilirubin NEGATIVE Urine Urobilinogen 0.2 (NORMAL) Ur Leukocyte Esterase NEGATIVE Urine RBC 6-10 H Urine WBC 0-3 Ur Squamous Epith Cells FEW Squamous Urine Bacteria None Seen Ur Microscopic Review INDICATED Urine Culture Comments NOT INDICATED Urine HCG, Qual NEGATIVE 02/23/23 16:22 WBC RBC Hgb Hct MCV MCH MCHC RDW Plt Count MPV Neut # (Auto) Lymph # (Auto) [place] # (Auto) Eos # (Auto) Baso # (Auto) Absolute Nucleated RBC Nucleated RBC % Sodium Potassium Chloride Carbon Dioxide Anion Gap BUN Creatinine Estimated GFR (MDRD) Glucose POC Whole Bld Glucose 72 Calcium Total Bilirubin AST ALT Alkaline Phosphatase Total Protein Albumin Globulin Albumin/Globulin Ratio Lipase Urine Color Urine Clarity Urine pH Ur Specific [place] Urine Protein Urine Glucose (UA) Urine Ketones Urine Occult Blood Urine Nitrite Urine Bilirubin Urine Urobilinogen Ur Leukocyte Esterase Urine RBC Urine WBC Ur Squamous Epith Cells Urine Bacteria Ur Microscopic Review Urine Culture Comments Urine HCG, Qual PD Medical Decision Making - ED course Complexity details: reviewed results, re-evaluated patient, d/w patient ED course: 1644 - Discussed with Dr. Barajas regarding CT results and he will come evaluate the patient.Patient continues to have tenderness to the right lower quadrant and clinically I do also have concerns for acute appendicitis. There is also no ovarian cyst seen on her ultrasound. Patient is a 37-year-old female with right lower quadrant pain since last night with nausea and vomiting. She does have tenderness noted on exam over McBurney's. CBC, chemistries and urine analysis were obtained and reviewed. Her glucose is low and patient reports she has not been able to keep down any p.o. intake today. She was given crackers and juice out in triage. She appears to be asymptomatic from the hypoglycemia. Ultrasound was obtained which does not demonstrate any ovarian pathology including ovarian torsion. No cyst seen. CT scan of the abdomen pelvis was obtained which shows a minimally dilated appendix with no adjacent inflammatory signs. Discussed with Dr. Barajas who graciously also evaluated her in the emergency department. Patient is agreeable to trial of antibiotics for possible early appendicitis. Penicillin is listed as an allergy for her but patient states that she has been on amoxicillin before including last month and tolerated this without issue. Therefore I will prescribe Augmentin. Patient also given a small amount of pain and nausea medications and instructed on strict return precautions. Departure - Departure Disposition: Home, Self Care Clinical Impression: RLQ abdominal pain Condition: Stable Instructions: ED Abdominal Pain Appendx Poss Prescriptions: Amox/Clav 875/125 [Augmentin] 1 each PO Q12H #14 tablet HYDROcod/ACETAM 5/325 [[place] 5/325] 1 tablet PO Q6H PRN #10 tablet PRN Reason: Pain Ondansetron Odt [Zofran] 4 mg TL Q6H PRN #10 tablet PRN Reason: Nausea / Vomiting Comments: Your ultrasound did not show signs of ovarian cyst. And altered a CT scan of your abdomen and pelvis showed possible dilation of your appendix which could be a sign of early appendicitis. We have had our general surgeon evaluate you and our plan is to start you on oral antibiotics for possible early appendicitis. If it anytime though you develop any worsening symptoms such as fever, increased pain, vomiting then please return directly to the emergency department. I have sent your prescriptions to [facility] in [place]. Your blood sugar has been slightly low here today which is likely from not having much to eat or drink. I would recommend continuing with bland fluids and hydration today. I am prescribing a short course of narcotic pain medication for you. These are potentially dangerous and addictive medications that should be used carefully. These medications may constipate you. Take an [id number] stool softener (docusate) twice daily with plenty of water while taking these medications. If you go 24 hours without a bowel movement, take [id number] miralax, per package instructions. Do not drink or drive while taking these medications. If you received narcotic or sedating medications while in the emergency department, do not drive for 24 hours. Store this medication in a safe, secure place and out of reach of children. It is a violation of federal law to give or sell this medication to another person or to use in a manner other than prescribed. The ED will not refill narcotic prescriptions, including prescriptions lost or stolen. To dispose of unwanted medications: 1. [facility] at [address] in [place] has a medication drop box. They accept prescription medications (in pill form) Wednesday through Wednesday 9:00 a.m. to 5:00 p.m. 2. [facility] [employer] accepts prescription medications (in pill form only) for disposal year round. Call for more information. 3. Contact the [facility] for the next [facility] sponsored prescription drug collection event. , [phone], or [phone]; Note that many narcotic pain relievers also contain Tylenol/acetaminophen. Please ensure that your total dose of acetaminophen from all sources does not exceed 3 g (3000 mg) per day. Forms: PCP List
--- NOTE | 2023-02-23 16:28 | CT Report ---
PROCEDURE: ABDOMEN/PELVIS W INDICATIONS: RLQ pain/vomiting CONTRAST: 100mL Omni 300 TECHNIQUE: After the administration of IV contrast, 5 mm thick sections acquired from the diaphragms to the symp hysis. 5 mm thick coronal and sagittal reformats were acquired. For radiation dose reduction, the f ollowing was used: automated exposure control, adjustment of mA and/or kV according to patient size. COMPARISON: Pelvic ultrasound the 2222, 04/22/2022 FINDINGS: Image quality: Excellent. Lung bases and heart: Unremarkable. Liver: Liver measures 18.6 cm with steatosis. Gallbladder and biliary tree: Spleen: No splenomegaly. Pancreas: No pancreatic ductal dilation. Adrenals: No adrenal nodule. Kidneys and ureters: No hydronephrosis. No renal cystic lesion which requires follow up. No solid mas s. Bowel and peritoneum: No bowel distension. No pathologic free fluid. The appendix is borderline promi nent measuring 5 mm. There is no surrounding inflammatory change. No priors are available for compari son. Lymph nodes: No central or retroperitoneal adenopathy. Vessels: No infrarenal aortic aneurysm. PELVIS Reproductive organs: Unremarkable. Bladder: No abnormal wall thickening, accounting for underdistension. Pelvic lymph nodes: No pelvic adenopathy by size criteria. Bones: No aggressive osseous abnormality. Other: No significant ventral or inguinal hernia. IMPRESSION: Appendix is borderline enlarged. However, no inflammatory changes identified. While this could repres ent a very early appendicitis, this also could represent congenital variation, given lack of prior ex ams. Recommend clinical correlation and follow-up imaging as indicated for further evaluation. Reviewed by: Kerri Whiting MD on 02/23/2023 4:27 PM PDT Approved by: Kerri Whiting MD on 02/23/2023 4:27 PM PDT Station ID: [id number]
--- NOTE | 2023-02-23 16:39 | Ultrasound Report ---
PROCEDURE: Pelvic w/Doppler Complete INDICATIONS: R pelvic pain TECHNIQUE: Real-time scanning was performed of the pelvic organs, with image documentation. Duplex imaging was u tilized. No transvaginal imaging performed. COMPARISON: 04/22/2022 FINDINGS: Uterus: Uterus is anteverted and normal in size at 7.0 x 3.2 x 4.3 cm. The myometrium is homogeneou s. The endometrium measures 3.2 mm in combined thickness. No fibroids Ovaries: The right ovary measures 2.4 x 1.5 x 2.2 cm, with a calculated ovarian volume of 4.1 cc. T he left ovary measures 2.8 x 1.7 x 1.5 cm, with a calculated ovarian volume of 3.8 cc. The ovaries h ave a normal sonographic appearance. Less than 12 follicles can be seen in each ovary. No adnexal m asses are seen. No cystic lesions measuring greater than 3 cm. There is bilateral intraovarian flow. Other: No pathologic free abdominal or pelvic fluid. IMPRESSION: Unremarkable pelvic ultrasound. No evidence of ovarian torsion or other ovarian pathology. Reviewed by: Grady Kamara MD on 02/23/2023 4:38 PM PDT Approved by: Grady Kamara MD on 02/23/2023 4:38 PM PDT Station ID: [id number]
--- NOTE | 2023-02-23 17:31 | CONSULTATION NOTE ---
Referring Provider Name of Referring Provider:: Dr. Johny Jones Consult Date: 02/23/23 Chief Complaint - Chief Complaint Chief Complaint: RLQ pain History of Present Illness - Admitted From Admitted From:: Seen in ED - History Obtained From Records Reviewed: Yes History obtained from: Patient primarily Exam Limitations: None - History of Present Illness HPI Comment/Other: This exceedingly pleasant 37 year old female with a history of ovarian cysts since the age of 13 presents today with acute RLQ pain that started last night as she was preparing dinner. The pain was so bad that she did not eat. Movement worsens the pain and it radiates up to the RUQ and down to the upper thigh. She had a diarrheal bowel movement this morning but it did not help the pain. This is markedly worse than her previous ruptured cyst pain. Laying in the CT was painful. She denies any urinary tract symptoms (review of her labs shows microhematuria - not worthy of workup). She has had a tubal ligation. There was associated nausea. History - Past Medical History Cardiovascular: reports: None Respiratory: reports: None Neuro: reports: Seizure disorder (Normally has aura and no seizure in recent memory.) GI: reports: None BOX PERSON: reports: Ovarian cysts Psych: reports: Depression, Anxiety, Other MRSA Hx?: No - Past Surgical History /BOX PERSON: reports: section, 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 - POLST Patient has POLST: No Meds/Allgy - Home Medications Home Medications: Ambulatory Orders Medication Instructions Recorded Confirmed Fluoxetine HCl [Prozac] 40 mg PO DAILY #120 cap 02/03/22 03/29/22 lamoTRIgine [Lamictal] 200 mg PO BID #240 tablet 02/03/22 03/29/22 Benzonatate [Tessalon] 200 mg PO TID PRN #30 cap 03/29/22 Gabapentin [Neurontin] 600 mg PO BID 03/29/22 03/29/22 LORazepam [Ativan] 0.5 mg PO Q6H PRN #10 tablet 03/29/22 Meloxicam [Mobic] 7.5 mg PO BID PRN #20 tablet 03/29/22 Ondansetron Odt [Zofran] 4 mg TL Q6H PRN #10 tablet 03/29/22 - Allergies Allergies/Adverse Reactions: Allergies Allergy/AdvReac Type Severity Reaction Status Date / Time azithromycin Allergy Hives Verified 02/23/23 12:24 levetiracetam [From Keppra] Allergy Anxiety Verified 02/23/23 12:24 penicillin G Allergy Hives Verified 02/23/23 12:24 promethazine [From Phenergan] Allergy Hallucinati Verified 02/23/23 12:24 ons shellfish derived Allergy Respiratory Verified 02/23/23 12:24 Review of Systems - Constitutional Constitutional: denies: Fatigue, Fever, Chills - Eyes Eyes: denies: Pain - Ears, Nose & Throat Ears, Nose & Throat: denies: Ear pain - Cardiovascular Cariovascular: denies: Chest pain - Genitourinary Genitourinary: denies: Dysuria - Neurological Neurological: denies: General weakness, Focal weakness - Psychiatric Psychiatric: reports: Depression, Anxiety Exam - Vital Signs Reviewed Vital Signs: Yes Vital Signs: Vital Signs x48h Temp Pulse Resp BP Pulse Ox 02/23/23 16:16 79 17 114/87 H 100 02/23/23 14:53 74 12 111/86 H 100 02/23/23 12:24 36.5 C 87 16 103/69 100 - Physical Exam General Appearance: positive: No acute distress Eyes Bilateral: positive: No lid inflammation, Conjunctivae nml, No scleral icterus ENT: positive: No signs of dehydration Neck: positive: Trachea midline Respiratory: positive: Breath sounds nml Cardiovascular: positive: Regular rate & rhythm Abdomen: positive: No organomegaly, Nml bowel sounds, No distention, Other (Definitely more tender in RLQ with positive Rovsings and psoas sign. Not rigid.). negative: Hepatomegaly Skin: positive: Color nml, Warm, Dry Extremities: positive: Nml appearance. negative: Katie's sign/cords Neurologic/Psychiatric: positive: Oriented x3, Motor nml, Sensation nml, Mood/affect nml Conclusion/Plan - Lab Results Lab results reviewed: Yes Fish Bones: 02/23/23 12:47 02/23/23 12:47 - Diagnostic Imaging Results Diagnostic Imaging Results: positive: Final report reviewed - Other Other Results/Comments: The likelihood of appendicitis with a normal WBC is about 4% in adults. Her appendix measures [address] 8 mm would have raised some concern but again no surrounding fluid or inflammation. After a discussion of the pros and cons of surgery versus treatment with antibiotics the patient and her significant other have decided on watchful waiting with antibiotics. I explained that ruptured ovarian cysts can hurt for weeks but if she develops a fever greater than 101 Farentheit, worsening abdominal pain, protracted nausea and vomiting then they should come back to the ED where I will take out her appendix. I asked that they call with any additional questions and/or concerns - they stated that they would. She should be discharged home with antibiotics and a follow up with her primary care physician as needed. I would like to thank Dr. Johny Jones very much for the opportunity to participate in this patient's care. CPT 58808
[2023-02-23 18:07] VITALS: BP 112/88; O2SAT 98
[2023-02-23] MEDS ORDERED: iohexoL-300 100 ML VIAL IVP ONE (21:24)
== END 2023-02-23 18:00 | disposition home or self-care (01) ==
LOC: ED 12:02
DX: R10.31 Right lower quadrant pain (principal)
CPT/HCPCS: 36415; 80053; 81001; 81003; 81025; 83690; 85025; 87086; 93975; 96374; 96375; 99284

== ENCOUNTER 2023-02-24 18:39 | Day surgery (SDC) | payer MEDICAID ==
[2023-02-24] MEDS ORDERED: HYDROmorphone 1 MG/ML CARPUJECT IVP STA (19:07)
[2023-02-24] MEDS ORDERED: SODIUM CHLORIDE 0.9% 1,000 ML IV STA (19:07)
[2023-02-24] MEDS ORDERED: PIPERACILLIN/TAZOBACTAM 3.375 GM in SODIUM CHLORIDE 0.9% MINIBAG 100 ML IV STA (19:07)
--- NOTE | 2023-02-24 19:14 | ED Physician Documentation ---
History of Present Illness - Stated complaint Stated Complaint: ABD PX - Chief complaint Chief Complaint: Abd Pain - History obtained from History obtained from: Patient - History of Present Illness Timing: How many days ago (3) Pain level max: 8 Pain level now: 8 - Additonal information Additional information: Patient is a 37-year-old female who presents to the emergency department with 3 days of abdominal pain. She states the pain is in the right lower quadrant has been gradually worsening. Was seen here yesterday and had a possible diagnosis of appendicitis. She was placed on antibiotics and pain medication, pain is continued to worsen throughout the day. She states she is unable to walk without pain. Has not had any appetite today. Attempted to eat earlier today, states she just does not feel hungry. Had a negative hCG yesterday. Was seen by the surgeon, Dr. Barajas and told to return if she was not improved. 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: Ovarian cysts Psych: Depression, Anxiety, Other - Past Surgical History Past Surgical History: No /GLASS FINISHER: section, 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 - Present Medications Home Medications: Ambulatory Orders Medication Instructions Recorded Confirmed Fluoxetine HCl [Prozac] 40 mg PO DAILY #120 cap 02/03/22 03/29/22 lamoTRIgine [Lamictal] 200 mg PO BID #240 tablet 02/03/22 03/29/22 Benzonatate [Tessalon] 200 mg PO TID PRN #30 cap 03/29/22 Gabapentin [Neurontin] 600 mg PO BID 03/29/22 03/29/22 LORazepam [Ativan] 0.5 mg PO Q6H PRN #10 tablet 03/29/22 Meloxicam [Mobic] 7.5 mg PO BID PRN #20 tablet 03/29/22 Ondansetron Odt [Zofran] 4 mg TL Q6H PRN #10 tablet 03/29/22 Amox/Clav 875/125 [Augmentin] 1 each PO Q12H #14 tablet 02/23/23 HYDROcod/ACETAM 5/325 [[place] 5/325] 1 tablet PO Q6H PRN #10 tablet 02/23/23 Ondansetron Odt [Zofran] 4 mg TL Q6H PRN #10 tablet 02/23/23 Docusate Sodium 250Mg Capsule 250 mg PO DAILY #10 cap 02/24/23 [Colace 250Mg Capsule] HYDROcod/ACETAM 5/325 [[place] 5/325] 1 each PO Q4H PRN #8 tablet 02/24/23 - Allergies Allergies/Adverse Reactions: Allergies Allergy/AdvReac Type Severity Reaction Status Date / Time azithromycin Allergy Hives Verified 02/23/23 12:24 levetiracetam [From Keppra] Allergy Anxiety Verified 02/23/23 12:24 promethazine [From Phenergan] Allergy Hallucinati Verified 02/23/23 12:24 ons shellfish derived Allergy Respiratory Verified 02/23/23 12:24 - Social History Does the pt smoke?: No Smoking Status: Never smoker Does the pt drink ETOH?: Yes Does the pt have substance abuse?: No - Immunizations Immunizations are current?: Yes - POLST Patient has POLST: No PD ED PE NORMAL - Vitals Vital signs reviewed: Yes - General General: Alert and oriented X 3, No acute distress - HEENT HEENT: PERRL, Moist mucous membranes - Cardiac Cardiac: RRR, Strong equal pulses - Respiratory Respiratory: No respiratory distress, Clear bilaterally - Abdomen Abdomen: Soft, Other (Tender to palpation right lower quadrant at McBurney's point. Negative rebound and guarding.) - Derm Derm: Warm and dry - Extremities Extremities: No edema, No calf tenderness / cord - Neuro Neuro: Alert and oriented X 3 - Psych Psych: Normal mood, Normal affect Results - Vitals Vitals: Vital Signs - 24 hr 02/24/23 02/24/23 02/24/23 18:42 21:51 21:55 Temperature 36.6 C 36.0 C L Heart Rate 82 101 H 112 H Respiratory 18 14 18 Rate Blood Pressure 104/81 H 105/74 104/66 O2 Saturation 100 100 100 02/24/23 02/24/23 22:00 22:10 Temperature Heart Rate 104 H 95 Respiratory 17 16 Rate Blood Pressure 107/87 H 119/68 O2 Saturation 99 100 Oxygen O2 Source Room air - Labs Labs: Laboratory Tests 02/24/23 02/24/23 20:00 20:00 WBC 5.1 RBC 4.06 L Hgb 12.6 Hct 36.9 L MCV 90.9 MCH 31.0 MCHC 34.1 RDW 12.0 Plt Count 233 MPV 9.4 Neut # (Auto) 2.5 Lymph # (Auto) 2.2 [place] # (Auto) 0.3 Eos # (Auto) 0.1 Baso # (Auto) 0.0 Absolute Nucleated RBC 0.00 Nucleated RBC % 0.0 Sodium 139 Potassium 3.7 Chloride 105 Carbon Dioxide 28 Anion Gap 6.0 BUN 9 Creatinine 0.8 Estimated GFR (MDRD) 81 L Glucose 72 L Calcium 9.9 Total Bilirubin 0.4 AST 15 ALT 10 Alkaline Phosphatase 58 Total Protein 7.2 Albumin 4.6 Globulin 2.6 Albumin/Globulin Ratio 1.8 Lipase 40 PD Medical Decision Making - ED course Complexity details: reviewed results, re-evaluated patient, considered differential, d/w patient, d/w [employer] consultant ED course: 37-year-old female with continued right lower quadrant abdominal pain. Possible appendicitis on CT scan yesterday, normal white blood cell count today but has had worsening right lower quadrant pain. Had a normal pelvic ultrasound yesterday as well. Discussed the case with Dr. Barajas who will take her to the operating room for appendectomy. Given IV Zosyn, IV Dilaudid and started on IV fluids. This document was made in part using voice recognition software. While efforts are made to proofread this document, sound alike and grammatical errors may occur. Departure - Departure Disposition: ED Transfer to [facility] Clinical Impression: RLQ abdominal pain Appendicitis Qualifiers: Appendicitis type: acute appendicitis Acute appendicitis type: with localized peritonitis Appendicitis gangrene presence: unspecified whether gangrene present Appendicitis perforation presence: unspecified whether perforation present Appendicitis abscess presence: unspecified whether abscess present Qualified Code(s): K35.30 - Acute appendicitis with localized peritonitis, without perforation or gangrene Condition: Stable Discharge Date/Time: 02/24/23 20:31
[2023-02-24 20:12] LABS: BASOPHILS % (AUTO) 0.6 %; EOSINOPHILS # (AUTO) 0.1 10^3/uL (0.0-0.7); EOSINOPHILS % (AUTO) 1.2 %; HCT - HEMATOCRIT 36.9 % (37.0-47.0); HGB - HEMOGLOBIN 12.6 g/dL (12.0-16.0); LYMPHOCYTES # (AUTO) 2.2 10^3/uL (1.5-3.5); LYMPHOCYTES % (AUTO) 43.8 %; MEAN CORPUSCULAR HGB CONC 34.1 g/dL (32.0-36.0); MEAN CORPUSCULAR VOLUME 90.9 fL (81.0-99.0); MEAN PLATELET VOLUME 9.4 fL (7.9-10.8); MONOCYTES # (AUTO) 0.3 10^3/uL (0.0-1.0); MONOCYTES % (AUTO) 5.9 %; NEUTROPHILS # (AUTO) 2.5 10^3/uL (1.5-6.6); NEUTROPHILS % (AUTO) 48.5 %; PLT - PLATELET COUNT 233 10^3/uL (130-450); RED BLOOD COUNT 4.06 10^6/uL (4.20-5.40); WHITE BLOOD COUNT 5.1 x10^3/uL (4.8-10.8)
[2023-02-24] MEDS ORDERED: MIDAZOLAM 2 MG/2 ML VIAL ONE (20:13)
[2023-02-24] MEDS ORDERED: fentaNYL 100 MCG/2 ML VIAL ONE ×2 (20:14→21:13)
[2023-02-24] MEDS ORDERED: PROPOFOL 200 MG/20 ML VIAL IVP ONE (20:14)
[2023-02-24] MEDS ORDERED: MORPHINE 2 MG/ML CARPUJECT IVP PRN ×2 (20:15→22:25)
[2023-02-24] MEDS ORDERED: NALOXONE 0.4 MG/ML VIAL IVP PRN ×2 (20:15→22:25)
[2023-02-24] MEDS ORDERED: ATROPINE ABBOJECT 1 MG/10 ML SYRINGE IVP PRN ×2 (20:15→22:25)
[2023-02-24] MEDS ORDERED: fentaNYL 100 MCG/2 ML VIAL IVP PRN ×2 (20:15→22:25)
[2023-02-24] MEDS ORDERED: ONDANSETRON 4 MG/2 ML VIAL IVP PRN ×3 (20:15→23:46)
[2023-02-24] MEDS ORDERED: ePHEDrine 50 MG/ML VIAL IVP PRN ×2 (20:15→22:25)
[2023-02-24] MEDS ORDERED: HYDROmorphone 0.5 MG/0.5 ML SYRINGE IVP PRN ×2 (20:15→22:25)
--- NOTE | 2023-02-24 20:15 | ANESTHESIA ---
Pre-Anesthesia VS, & Labs - Diagnosis ACUTE APPENDICITIS - Procedure Laparoscopic cholecystectomy Vital Signs: Temp Pulse Resp BP Pulse Ox O2 Flow Rate 36.6 C 82 18 104/81 H 100 02/24/23 18:42 02/24/23 18:42 02/24/23 18:42 02/24/23 18:42 02/24/23 18:42 Height: 5 ft 7 in Weight (kg): 54.431 kg Body Mass Index: 18.8 BMI Classification: Normal - NPO >8 hours Last Fluid Intake: 6 hours, coffee - Is Patient ?: No - Lab Results Current Lab Results: Laboratory Tests 02/24/23 20:00: WBC 5.1, RBC 4.06 L, Hgb 12.6, Hct 36.9 L, MCV 90.9, MCH 31.0, MCHC 34.1, RDW 12.0, Plt Count 233, MPV 9.4, Neut # (Auto) 2.5, Lymph # (Auto) 2.2, [place] # (Auto) 0.3, Eos # (Auto) 0.1, Baso # (Auto) 0.0, Absolute Nucleated RBC 0.00, Nucleated RBC % 0.0 Lab results reviewed: Yes Fish Bones: 02/24/23 20:00 Home Medications and Allergies Active Medications Sodium Chloride (Normal Saline 0.9%) 1,000 mls @ 150 mls/hr IV .Q6H40M STA Stop: 02/25/23 01:46 Last Admin: 02/24/23 19:59 Dose: 150 mls/hr Gabapentin [Neurontin] 600 mg PO BID 03/29/22 Allergies/Adverse Reactions: Allergies Allergy/AdvReac Type Severity Reaction Status Date / Time azithromycin Allergy Hives Verified 02/23/23 12:24 levetiracetam [From Keppra] Allergy Anxiety Verified 02/23/23 12:24 promethazine [From Phenergan] Allergy Hallucinati Verified 02/23/23 12:24 ons shellfish derived Allergy Respiratory Verified 02/23/23 12:24 Anes History & Medical History - Anesthetic History Anesthesia Complications: reports: No previous complications Family history of Anesthesia Complications: Denies Family history of Malignant Hyperthermia: Denies - Medical History Cardiovascular: reports: None Pulmonary: reports: None Gastrointestinal: reports: None Neuro: reports: Seizure disorder Smoking Status: Never smoker - Surgical History Gynecologic: reports: section, 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 Exam General: Alert, Oriented x3, Cooperative Dental: Dentures full Upper Mouth Openin Fingerbreadth Neck Mobility: Normal Mallampati classification: I Thyromental Distance: 4-6 cm Respiratory: Lungs clear, Normal breath sounds, No respiratory distress Cardiovascular: Regular rate Neurological: Normal speech Mental/Cognitive Status: Alert/Oriented X3, Normal for patient Cognitive Status: Within normal limits Plan Anesthesia Type: General Consent for Procedure(s) Verified and Reviewed: Yes Code Status: Attempt Resuscitation ASA classification: 2-Mild systemic disease Is this case an emergency?: Yes
[2023-02-24] MEDS ORDERED: ROCURONIUM 50 MG/5 ML VIAL ONE (20:16)
--- NOTE | 2023-02-24 20:19 | CONSULTATION NOTE ---
Referring Provider Name of Referring Provider:: Dr. Vimal Suresh Consult Date: 02/24/23 Chief Complaint - Chief Complaint Chief Complaint: Right lower quadrant pain History of Present Illness - Admitted From Admitted From:: ED - History Obtained From Records Reviewed: Yes History obtained from: Patient Exam Limitations: None. - History of Present Illness HPI Comment/Other: I saw this exceedingly pleasant 37-year-old female yesterday for the exact same reason want when she was seen yesterday her white blood cell count was normal and the appendix appeared normal on CT scan. As result and after discussion with the patient we opted for a path of watchful waiting. The plan was that if the patient became worse then she will come back to emergency department and I would remove her appendix. This is exactly what has occurred. 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: Ovarian cysts Psych: reports: Depression, Anxiety, Other MRSA Hx?: No - Past Surgical History /ELEMENTARY LIBRARIAN: reports: section, 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 - POLST Patient has POLST: No Meds/Allgy - Home Medications Home Medications: Ambulatory Orders Medication Instructions Recorded Confirmed Fluoxetine HCl [Prozac] 40 mg PO DAILY #120 cap 02/03/22 03/29/22 lamoTRIgine [Lamictal] 200 mg PO BID #240 tablet 02/03/22 03/29/22 Benzonatate [Tessalon] 200 mg PO TID PRN #30 cap 03/29/22 Gabapentin [Neurontin] 600 mg PO BID 03/29/22 03/29/22 LORazepam [Ativan] 0.5 mg PO Q6H PRN #10 tablet 03/29/22 Meloxicam [Mobic] 7.5 mg PO BID PRN #20 tablet 03/29/22 Ondansetron Odt [Zofran] 4 mg TL Q6H PRN #10 tablet 03/29/22 Amox/Clav 875/125 [Augmentin] 1 each PO Q12H #14 tablet 02/23/23 HYDROcod/ACETAM 5/325 [[place] 5/325] 1 tablet PO Q6H PRN #10 tablet 02/23/23 Ondansetron Odt [Zofran] 4 mg TL Q6H PRN #10 tablet 02/23/23 - Allergies Allergies/Adverse Reactions: Allergies Allergy/AdvReac Type Severity Reaction Status Date / Time azithromycin Allergy Hives Verified 02/23/23 12:24 levetiracetam [From Keppra] Allergy Anxiety Verified 02/23/23 12:24 promethazine [From Phenergan] Allergy Hallucinati Verified 02/23/23 12:24 ons shellfish derived Allergy Respiratory Verified 02/23/23 12:24 Review of Systems - Constitutional Constitutional: reports: Malaise, Poor appetite - Eyes Eyes: denies: Pain - Ears, Nose & Throat Ears, Nose & Throat: denies: Ear pain - Cardiovascular Cariovascular: denies: Irregular heart rate, Chest pain - Respiratory Respiratory: denies: Cough, Sputum production, Wheezing - Gastrointestinal Gastrointestinal: reports: Abdominal pain. denies: Black stools, Bloody stools - Musculoskeletal Musculoskeletal: reports: Back pain, Muscle aches. denies: Muscle pain - Integumentary Integumentary: denies: Rash - Neurological Neurological: denies: General weakness, Focal weakness Exam - Vital Signs Reviewed Vital Signs: Yes Vital Signs: Vital Signs x48h Temp Pulse Resp BP Pulse Ox 02/24/23 18:42 36.6 C 82 18 104/81 H 100 - Physical Exam General Appearance: positive: Mild distress Eyes Bilateral: positive: No lid inflammation, Conjunctivae nml, No scleral icterus ENT: positive: Dry mucous membranes Neck: positive: Trachea midline Respiratory: positive: Chest non-tender, No respiratory distress, Breath sounds nml Cardiovascular: positive: Regular rate & rhythm, No murmur Abdomen: positive: Nml bowel sounds, No distention, Tenderness (Right lower quadrant) Extremities: positive: Non-tender, Full ROM, Nml appearance (Drawn up as it is less painful for her to sit this way.) Neurologic/Psychiatric: positive: Oriented x3, Motor nml, Sensation nml, Mood/affect nml Conclusion/Plan - Lab Results Lab results reviewed: Yes Fish Bones: 02/24/23 20:00 - Diagnostic Imaging Results Diagnostic Imaging Results: positive: Final report reviewed - Other Other Results/Comments: Persistent right lower quadrant pain. As I explained yesterday the likelihood of acute appendicitis is 4% but it is still 4%. The patient's symptoms have not resolved with antibiotics and time. As result this suggest that an operation is in order. The indications, procedure, alternatives, and possible complications including but not limited to infection, bleeding, and were fully explained to the patient and her significant other and all questions answered. Verbal and written consent was obtained. The patient has already been given Zosyn so additional antibiotics should not be necessary prior to the operation. Teds and Venodyne's will be placed for prophylax against deep venous thrombosis. She is not particularly care about her navel piercing. I have asked her and her significant other to let us know if there is any way we can make her stay at [facility] more comfortable and she stated that she would. CPT 49028
[2023-02-24 20:28] LABS: ALBUMIN 4.6 g/dL (3.2-5.5); ALBUMIN/GLOBULIN RATIO 1.8 (1.0-2.2); BILIRUBIN,TOTAL 0.4 mg/dL (0.2-1.0); CALCIUM 9.9 mg/dL (8.5-10.3); CREATININE 0.8 mg/dL (0.6-1.3); POTASSIUM 3.7 mmol/L (3.5-4.5); TOTAL PROTEIN 7.2 g/dL (6.4-8.9)
[2023-02-24] MEDS ORDERED: BUPIVACAINE 0.25% PF 30 ML VIAL ONE (20:29)
[2023-02-24] MEDS ORDERED: LIDOCAINE 1%-EPI 1:100000 20 ML MDV ONE (20:29)
[2023-02-24] MEDS ORDERED: KETOROLAC 30 MG/ML VIAL ONE (20:50)
[2023-02-24] MEDS ORDERED: DEXAMETHASONE 4 MG/ML VIAL ONE (20:50)
[2023-02-24] MEDS ORDERED: ONDANSETRON 4 MG/2 ML VIAL ONE ×2 (20:50→22:40)
[2023-02-24] MEDS ORDERED: BUPIVACAINE 0.5%-EPI 1:200000 PF 30 ML VIAL ONE (20:57)
[2023-02-24] MEDS ORDERED: ePHEDrine 50 MG/ML VIAL IVP ONE (20:57)
[2023-02-24] MEDS ORDERED: LACTATED RINGERS 1,000 ML IV SCH ×3 (21:00→23:00)
[2023-02-24] MEDS ORDERED: GLYCOPYRROLATE 1 MG/5 ML VIAL ONE (21:01)
[2023-02-24] MEDS ORDERED: BUPIVACAINE 0.5%-EPI 1:200000 PF 30 ML VIAL SUBQ ONE ×2 (21:02)
[2023-02-24] MEDS ORDERED: NEOSTIGMINE 1 MG/1 ML 10 ML MDV ONE (21:17)
[2023-02-24] MEDS ORDERED: LACTATED RINGERS 1,000 ML IV ONE (21:51)
--- NOTE | 2023-02-24 22:03 | OPERATIVE REPORT ---
Operative Report - General Procedure Date: 02/24/23 Planned Procedure: Laparoscopic appendectomy Pre-Op Diagnosis: Acute appendicitis Procedure Performed: Laparoscopic appendectomy, adhesiolysis, repair very small umbilical hernia Post Op Diagnosis: Normal appendix with dense adhesions and dilated RIGHT fallopian tube with - Procedure Note Primary Surgeon: Tom Barajas MD Anesthesia Provider: Camron Yeager CRNA Anesthesia Technique: General ET tube, Local (30 mL 1/2% marcaine with epinephrine) IV Fluids (mL): 1,000 Estimated Blood Loss (mL): 5 Drain/Tube Type: Other (None.) Indications: RLQ pain Complications: None. - Other Other Information/Narrative: After verbal and written informed consent was obtained detailing the operation, the alternatives to the operation including no operation, risks of infection, bleeding requiring transfusion with its risks, nerve injury, and and after I met with the patient confirming the surgery, the patient was brought to the operative suite and placed supine on the operating table. Great care was taken to avoid pressure points to prevent pressure necrosis or nerve injury. Monitoring devices were applied along with TEDs and pneumatic compressive stockings (to prevent DVT). The patient received preoperative antibiotics for surgical prophylaxis. Camron Yeager CRNA sedated and anesthetized the patient for the entire procedure. The patient was prepped and draped in usual sterile manner. A "time in" then confirmed that the patient was identified with 3 identifiers (name, date, and medical record number), the history and physical was in the chart, the signed consent confirming the procedure was in the chart, the patient was in the correct position, the aforementioned prophylactic measures were in place were given, we had the correct personnel and equipment to complete the procedure and that anesthesia, and the surgical team was given an opportunity to express any concerns. With the agreement of everyone in the room, we proceeded with the operation. The initial incision was at the umbilicus and dissection to the linea alba was completed using blunt dissection. A small umbilical hernia was noted and the defect was incised large enough to place a 10/12 mm Shelby cannula. In a similar manner the peritoneum was grasped and incised using Metzenbaum scissors. In this location, a 12 mm blunt tipped, balloon tipped port was placed and the balloon was inflated to keep the port in position. The abdominal cavity was insufflated with carbon dioxide to a steady-state pressure of 12 mmHg. 2 additional 5 mm ports were placed in standard locations for laparoscopic appendectomy (above and below the umbilicus at the midline) under direct vision of the 30 degree laparoscope and without incident. The patient was then placed in Trendelenburg position and was rotated slightly to their left. Examination of the right lower quadrant revealed dense adhesions in the right lower quadrant with the appendix anteriorly located an exceedingly small. The appendix was not the source of her abdominal pain.. This was carefully grasped and the appendiceal mesentery was taken using sequential application of the LigaSure. Once the base of the appendix was encountered the appendix was transected using a laparoscopic ABRAHAN stapler with a GI load that had been placed through the umbilical port and the camera was switched to a 5 mm camera and placed through one of the 5 mm ports. Examination of the staple line noted to be intact without leak or bleeding. An Endopouch was placed through the umbilical port and the appendix was placed into the Endopouch and the Endopouch was secured. At this point examination revealed the right ovary with a cyst clearly present in it. Additionally the fallopian tube was markedly enlarged and densely adherent to surrounding tissues. There is no indication of inflammation or infection in the sense that there was no erythema nor was there any exudate or purulence noted instead the size of the fallopian tube was quite large. The adhesions of the fallopian tube to the right wall as well as adhesions of the right colon to the right wall were taken down sequentially using application of the LigaSure. The left right lower quadrant was then copiously irrigated using 2 L of warm sterile saline. I injected the port sites at the peritoneal, fascial, and skin levels under direct vision with 0.25% Marcaine. All ports and the Endopouch containing the appendix were removed. Following appendiceal removal, the remaining carbon dioxide was expelled from the abdomen. The fascia the umbilicus was approximated using 2 [id number] 0 Vicryl sutures thus repairing the small umbilical hernia. There was some distention at the infraumbilical region and this was a little bit unclear as to whether or not this represented another small umbilical hernia or where I injected the local anesthesia. I opted not to extend the incision and explore this area. The skin at each port site was approximated using a subcuticular 4-0 Monocryl. The skin was cleaned of its prep and Dermabond was applied. At this point a "timeout" was performed that confirmed that all counts were correct, the procedure that was performed, the blood loss, the IV fluids administered, the patient's condition and any concerns of the operating team had. Dressings were then applied. Having tolerated the procedure well, the patient was extubated and taken to recovery room in good and stable condition. The plan is for overnight stay with outpatient discharge when the patient is adequately recovered. CPT 82617 This document was created in part using voice recognition technology. Because of the inherent limitations of the system, occasional same sounding word substitutions and grammatical errors do occur and persist despite proofreading. Please read this document for context.
[2023-02-24] MEDS ORDERED: HYDROcod/ACETAM 5/325 MG TABLET PO PRN (22:11)
[2023-02-24] MEDS ORDERED: HYDROmorphone 0.5 MG/0.5 ML SYRINGE ONE (22:40)
--- NOTE | 2023-02-24 22:41 | ANESTHESIA POST OP EVALUATION ---
Anesthesia Post Eval - Post Anesthesia Eval Vitals: Last Vital Signs Temp 36.0 C L 02/24/23 22:30 Pulse 80 02/24/23 22:30 Resp 16 02/24/23 22:30 BP 115/88 H 02/24/23 22:30 Pulse Ox 100 02/24/23 22:30 O2 Flow Rate CV Function Including HR & BP: Stable Pain Control: Satisfactory Nausea & Vomiting: Negative Mental Status: Baseline Respiratory Status: Airway Patent Hydration Status: Satisfactory Anesthesia Complications: None
--- NOTE | 2023-02-24 22:46 | CONSULTATION NOTE ---
Consultation Report: Called to PACU following spouse arrival for patient stating tooth is missing from upper denture plate (#7). Patient declared upper denture prior to surgery, glued in tight. No difficulty with intubation other than needing light CP. OGT passed without event as well as oral suctioning to close case. OAW was used to transport pt to PACU after extubation, removed upon arrival and patient wakening. Pt denies having tooth in her mouth.
[2023-02-24] MEDS: HYDROmorphone 0.5 MG/0.5 ML SYRINGE IVP PRN (23:36)
[2023-02-25] MEDS: HYDROmorphone 0.5 MG/0.5 ML SYRINGE IVP PRN (09:06)
[2023-02-25 12:28] VITALS: BP 114/61; O2SAT 100
== END 2023-02-25 12:25 | disposition home or self-care (01) ==
LOC: ED 18:39 → SDS 19:51 → MS2 22:18 → SDS 02-25 12:25
PROVIDERS: ATTEND Surgery
PROC: 0DTJ4ZZ Resection of Appendix, Percutaneous Endoscopic Approach (ICD-10-PCS; principal; 2023-02-24 20:30)
DX: K66.0 Peritoneal adhesions (postprocedural) (postinfection) (principal); N83.8 Other noninflammatory disorders of ovary, fallopian tube and broad ligament; N83.201 Unspecified ovarian cyst, right side; K42.9 Umbilical hernia without obstruction or gangrene; G40.909 Epilepsy, unspecified, not intractable, without status epilepticus; Z97.2 Presence of dental prosthetic device (complete) (partial)
CPT/HCPCS: 36415; 44970; 58660; 80053; 83690; 85025; 96374; 99284; 99285; A9270; J1170; J7120

== ENCOUNTER 2023-08-17 12:17 | Outpatient (CLI) | payer MEDICAID ==
[2023-08-17 18:15] LABS: BASOPHILS % (AUTO) 0.9 %; EOSINOPHILS % (AUTO) 0.7 %; HCT - HEMATOCRIT 39.5 % (37.0-47.0); LYMPHOCYTES # (AUTO) 1.6 10^3/uL (1.5-3.5); LYMPHOCYTES % (AUTO) 35.2 %; MEAN CORPUSCULAR HEMOGLOBIN 30.2 pg (27.0-31.0); MEAN CORPUSCULAR HGB CONC 32.9 g/dL (32.0-36.0); MEAN CORPUSCULAR VOLUME 91.6 fL (81.0-99.0); MEAN PLATELET VOLUME 9.7 fL (7.9-10.8); MONOCYTES # (AUTO) 0.3 10^3/uL (0.0-1.0); MONOCYTES % (AUTO) 6.6 %; NEUTROPHILS # (AUTO) 2.6 10^3/uL (1.5-6.6); NEUTROPHILS % (AUTO) 56.2 %; PLT - PLATELET COUNT 281 10^3/uL (130-450); RED BLOOD COUNT 4.31 10^6/uL (4.20-5.40); RED CELL DISTRIBUTION WIDTH 12.3 % (12.0-15.0); WHITE BLOOD COUNT 4.6 x10^3/uL (4.8-10.8)
[2023-08-17 18:24] LABS: ALKALINE PHOSPHATASE 55 IU/L (42-121); ALT ALANINE AMINOTRANSFERASE 12 IU/L (10-60); AST ASPARTATE AMINOTRANSFERASE 14 IU/L (10-42); BILIRUBIN,TOTAL 0.5 mg/dL (0.2-1.0); BUN - BLOOD UREA NITROGEN 17 mg/dL (6-20); CARBON DIOXIDE - CO2 29 mmol/L (21-32); CHLORIDE 103 mmol/L (101-111); CHOL/HDL RATIO 2.6 (<4.4); CHOLESTEROL 186 mg/dL; CREATININE 0.8 mg/dL (0.6-1.3); GFR - MDRD 81 (>89); GLUCOSE 73 mg/dL (74-104); HDL CHOLESTEROL 71 mg/dL; LDL CHOLESTEROL,CALCULATED 91 mg/dL; LDL/HDL RATIO 1.3 (<4.4); POTASSIUM 3.9 mmol/L (3.5-4.5); SODIUM 139 mmol/L (135-145); TOTAL PROTEIN 7.5 g/dL (6.4-8.9); TRIGLYCERIDES 119 mg/dL (48-352); VLDL CHOLESTEROL 24 mg/dL
[2023-08-17 18:31] LABS: THYROID STIMULATING HORMONE 0.93 uIU/mL (0.34-5.60)
== END 2023-08-17 12:18 | disposition home or self-care (01) ==
LOC: LAB.N 12:17
PROVIDERS: ATTEND Nurse Practitioner Family
DX: Z00.00 Encounter for general adult medical examination without abnormal findings (principal); N92.0 Excessive and frequent menstruation with regular cycle; G40.909 Epilepsy, unspecified, not intractable, without status epilepticus
CPT/HCPCS: 36415; 80050; 80061; 80175; 83721

== ENCOUNTER 2023-12-30 13:56 | Emergency (ER) | payer MEDICAID ==
--- NOTE | 2023-12-30 15:37 | ED Physician Documentation ---
PD HPI SEIZURE - Stated complaint Stated Complaint: MIGRAINE,SEIZURE - Chief complaint Chief Complaint: Neuro - History obtained from History obtained from: Patient - Additional information Additional information: 38-year-old woman with history of seizure disorder and migraines. She is currently maintained on gabapentin 6 mg twice daily and lamotrigine for the above. Today she had gradual onset headache consistent with her prior migraines which was followed by a "seizure." The fianc describes this as a shaking episode where she was conscious, crying but still talking. She is trying to see a neurologist but is having access issues. No possibility of . She has an allergy to Keppra causing "rage." She has not been on any other seizure medicine other than the above and many many years. PD PAST MEDICAL HISTORY - Past Medical History Cardiovascular: None Respiratory: None Neuro: Headaches, Seizure disorder Endocrine/Autoimmune: None GI: None RELATIONS DIRECTOR: Ovarian cysts : None HEENT: None Psych: Depression, Anxiety, Other Musculoskeletal: None Derm: None - Past Surgical History Past Surgical History: No /RELATIONS DIRECTOR: section, 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 - Present Medications Home Medications: Ambulatory Orders Medication Instructions Recorded Confirmed Fluoxetine HCl [Prozac] 40 mg PO DAILY #120 cap 02/03/22 03/29/22 lamoTRIgine [Lamictal] 200 mg PO BID #240 tablet 02/03/22 03/29/22 Benzonatate [Tessalon] 200 mg PO TID PRN #30 cap 03/29/22 Gabapentin [Neurontin] 600 mg PO BID 03/29/22 03/29/22 LORazepam [Ativan] 0.5 mg PO Q6H PRN #10 tablet 03/29/22 Meloxicam [Mobic] 7.5 mg PO BID PRN #20 tablet 03/29/22 Ondansetron Odt [Zofran] 4 mg TL Q6H PRN #10 tablet 03/29/22 Amox/Clav 875/125 [Augmentin] 1 each PO Q12H #14 tablet 02/23/23 HYDROcod/ACETAM 5/325 [[place] 5/325] 1 tablet PO Q6H PRN #10 tablet 02/23/23 Ondansetron Odt [Zofran] 4 mg TL Q6H PRN #10 tablet 02/23/23 Docusate Sodium 250Mg Capsule 250 mg PO DAILY #10 cap 02/24/23 [Colace 250Mg Capsule] HYDROcod/ACETAM 5/325 [[place] 5/325] 1 each PO Q4H PRN #8 tablet 02/24/23 LORazepam [Ativan] 1 mg PO TID PRN #12 tablet 12/30/23 Topiramate 50 mg PO QPM #60 tablet 12/30/23 - Allergies Allergies/Adverse Reactions: Allergies Allergy/AdvReac Type Severity Reaction Status Date / Time azithromycin Allergy Hives Verified 12/30/23 14:19 levetiracetam [From Keppra] Allergy Anxiety Verified 12/30/23 14:19 promethazine [From Phenergan] Allergy Hallucinati Verified 12/30/23 14:19 ons shellfish derived Allergy Respiratory Verified 12/30/23 14:19 - Social History Does the pt smoke?: No Smoking Status: Never smoker Does the pt drink ETOH?: Yes Does the pt have substance abuse?: No - Immunizations Immunizations are current?: Yes - POLST Patient has POLST: No PD ED PE NORMAL - Vitals Vital signs reviewed: Yes - General General: Alert and oriented X 3, No acute distress - HEENT HEENT: PERRL, EOMI - Neck Neck: Supple, no meningeal sign, No bony TTP - Derm Derm: Normal color, Warm and dry - Neuro Neuro: Alert and oriented X 3, No motor deficit, No sensory deficit, Normal speech Eye Opening: Spontaneous Motor: Obeys Commands Verbal: Oriented GCS Score: 15 Results - Vitals Vitals: Vital Signs - 24 hr 12/30/23 14:14 Temperature 36.3 C L Heart Rate 77 Respiratory 22 Rate Blood Pressure 115/73 O2 Saturation 99 Oxygen O2 Source Room air - Labs Labs: Laboratory Tests 12/30/23 15:50 Sodium 140 Potassium 3.8 Chloride 106 Carbon Dioxide 27 Anion Gap 7.0 BUN 10 Creatinine 0.8 Estimated GFR (MDRD) 81 L Glucose 87 Calcium 10.3 Total Bilirubin 0.6 AST 13 ALT 10 Alkaline Phosphatase 53 Total Protein 7.6 Albumin 4.8 Globulin 2.8 Albumin/Globulin Ratio 1.7 PD Medical Decision Making - ED course ED course: She presents with a migraine headache. There is no clinical evidence of subarachnoid hemorrhage, nor meningitis. It was gradual onset and similar to prior headaches. 38-year-old woman presents with a migraine. There was some potential seizure activity this morning, but it sounds more like a panic attack and she was conscious during it. She was treated for her seizures with gabapentin and Lamictal.. Will medicate here with droperidol, fluids and Toradol with consideration for Topamax home-going for the dual diagnosis. After the above medication she was feeling much better with headache down to a 2. Departure - Departure Disposition: Home, Self Care Clinical Impression: Migraine Qualifiers: Migraine type: unspecified Status migrainosus presence: with status migrainosus Intractability: not intractable Qualified Code(s): G43.901 - Migraine, unspecified, not intractable, with status migrainosus Condition: Good Record reviewed to determine appropriate education?: Yes Instructions: ED Headache Migraine Prescriptions: LORazepam [Ativan] 1 mg PO TID PRN #12 tablet PRN Reason: Anxiety Topiramate 50 mg PO QPM #60 tablet Comments: I sent your prescriptions electronically to the [facility] in [place]. Continue your efforts to try to follow-up with a neurologist which is very appropriate. I am prescribing Topamax/topiramate which is a medication that is used both to help prevent migraines and seizures and as such it may be very appropriate for you. You can stop if you get side effects though. Also a few Ativan for the panic, do not drink or drive as discussed. Return for new or worsening symptoms. Call your doctor to arrange a follow-up appointment, make the next available appointment. In the interim, return anytime if worse or if new symptoms develop. Forms: PCP List
[2023-12-30] MEDS: KETOROLAC 15 MG/ML VIAL IVP STA (15:52)
[2023-12-30] MEDS: SODIUM CHLORIDE 0.9% 1,000 ML IV STA (15:53)
[2023-12-30] MEDS: DROPERIDOL 5 MG/2 ML VIAL IVP STA (15:53)
[2023-12-30 16:10] LABS: ALBUMIN 4.8 g/dL (3.2-5.5); ALBUMIN/GLOBULIN RATIO 1.7 (1.0-2.2); BILIRUBIN,TOTAL 0.6 mg/dL (0.2-1.0); CALCIUM 10.3 mg/dL (8.5-10.3); CREATININE 0.8 mg/dL (0.6-1.3); POTASSIUM 3.8 mmol/L (3.5-4.5); TOTAL PROTEIN 7.6 g/dL (6.4-8.9)
[2023-12-30 16:25] VITALS: BP 102/80; O2SAT 98
== END 2023-12-30 16:24 | disposition home or self-care (01) ==
LOC: ED 13:56
DX: G43.901 Migraine, unspecified, not intractable, with status migrainosus (principal); Z88.8 Allergy status to other drugs, medicaments and biological substances
CPT/HCPCS: 36415; 80053; 96374; 96375; 99283

== ENCOUNTER 2024-03-23 13:48 | Emergency (ER) | payer MEDICAID ==
[2024-03-23 13:58] VITALS: BP 103/75; O2SAT 100
--- NOTE | 2024-03-23 15:23 | ED Physician Documentation ---
PD HPI DYSPNEA - Stated complaint Stated Complaint: CHEST PX,EAR PX - Chief complaint Chief Complaint: Resp - History obtained from History obtained from: Patient - Additional information Additional information: The patient comes to the emergency department chief complaint of chest tightness and heaviness. She was diagnosed with COVID about 5 days ago and states that she has had congestion and a sore throat since. She states her fevers have been gone for the last couple of days, which is good. However, she has been having a feeling of chest tightness since last night when she was putting her kids to bed. She states that it just feels like hard to get air in and out. She still has somewhat of a dry cough. She otherwise has fairly healthy lungs though she does vape. She states she quit smoking tobacco many years ago and no longer smokes marijuana as of years ago as well. No asthma history. She does not take any respiratory medications. No other complaints at this time. PD PAST MEDICAL HISTORY - Past Medical History Cardiovascular: None Respiratory: None Neuro: Headaches, Seizure disorder Endocrine/Autoimmune: None GI: None WARRANTY CLERK: Ovarian cysts : None HEENT: None Psych: Depression, Anxiety, Other Musculoskeletal: None Derm: None - Past Surgical History Past Surgical History: No /WARRANTY CLERK: section, 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 - Present Medications Home Medications: Ambulatory Orders Medication Instructions Recorded Confirmed Fluoxetine HCl [Prozac] 40 mg PO DAILY #120 cap 02/03/22 03/29/22 lamoTRIgine [Lamictal] 200 mg PO BID #240 tablet 02/03/22 03/29/22 Benzonatate [Tessalon] 200 mg PO TID PRN #30 cap 03/29/22 Gabapentin [Neurontin] 600 mg PO BID 03/29/22 03/29/22 LORazepam [Ativan] 0.5 mg PO Q6H PRN #10 tablet 03/29/22 Meloxicam [Mobic] 7.5 mg PO BID PRN #20 tablet 03/29/22 Ondansetron Odt [Zofran] 4 mg TL Q6H PRN #10 tablet 03/29/22 Amox/Clav 875/125 [Augmentin] 1 each PO Q12H #14 tablet 02/23/23 HYDROcod/ACETAM 5/325 [[place] 5/325] 1 tablet PO Q6H PRN #10 tablet 02/23/23 Ondansetron Odt [Zofran] 4 mg TL Q6H PRN #10 tablet 02/23/23 Docusate Sodium 250Mg Capsule 250 mg PO DAILY #10 cap 02/24/23 [Colace 250Mg Capsule] HYDROcod/ACETAM 5/325 [[place] 5/325] 1 each PO Q4H PRN #8 tablet 02/24/23 LORazepam [Ativan] 1 mg PO TID PRN #12 tablet 12/30/23 Topiramate 50 mg PO QPM #60 tablet 12/30/23 predniSONE [Deltasone] 10 mg PO [id number] #42 tab 03/23/24 - Allergies Allergies/Adverse Reactions: Allergies Allergy/AdvReac Type Severity Reaction Status Date / Time azithromycin Allergy Hives Verified 03/23/24 13:57 levetiracetam [From Keppra] Allergy Anxiety Verified 03/23/24 13:57 promethazine [From Phenergan] Allergy Hallucinati Verified 03/23/24 13:57 ons shellfish derived Allergy Respiratory Verified 03/23/24 13:57 - Social History Does the pt smoke?: No Smoking Status: Never smoker Does the pt drink ETOH?: Yes Does the pt have substance abuse?: No - Immunizations Immunizations are current?: Yes - POLST Patient has POLST: No PD ED PE NORMAL - Vitals Vital signs reviewed: Yes - General General: Alert and oriented X 3, No acute distress, Well developed/nourished - HEENT HEENT: Atraumatic, EOMI, Moist mucous membranes - Neck Neck: Supple, no meningeal sign - Cardiac Cardiac: RRR, No murmur - Respiratory Respiratory: No respiratory distress, Clear bilaterally - Derm Derm: Normal color, Warm and dry, No rash - Extremities Extremities: No deformity, No edema, No calf tenderness / cord - Neuro Neuro: Alert and oriented X 3 - Psych Psych: Normal mood, Normal affect Results - Vitals Vitals: Vital Signs - 24 hr 03/23/24 13:52 Temperature 36.0 C L Heart Rate 81 Respiratory 18 Rate Blood Pressure 103/75 O2 Saturation 100 Oxygen O2 Source Room air - Rads (name of study) Chest x-ray Relevant Findings:: EMP independent interpretation of test (Negative) PD Medical Decision Making - ED course Complexity details: reviewed results, re-evaluated patient, considered differential, d/w patient ED course: I discussed with the patient that her lungs are clear. She actually sounds like for the most part she is getting better and she is not in any respiratory distress. Her oxygen saturation also looks good. The patient will be given a steroid taper. I have advised her that she will likely have symptoms for the next several days to a week and that this timeline is not unusual for COVID. We have discussed symptomatic management at home as well as usual indications for return. Departure - Departure Disposition: Home, Self Care Clinical Impression: COVID Condition: Stable Instructions: ED Viral Syndrome Prescriptions: predniSONE [Deltasone] 10 mg PO [id number] #42 tab Comments: Your chest x-ray actually looks very good. There is no evidence of pneumonia or any other problem with your lungs. Most likely you have some inflammation in your airways that is causing you to feel the heaviness. You might also have some chest wall tightness from coughing. I have sent a prescription for your steroids the [facility] in [place]. Please pick these up this evening.
--- NOTE | 2024-03-23 15:24 | XRAY Report ---
PROCEDURE: Chest 1V INDICATIONS: dyspnea TECHNIQUE: One view of the chest was acquired. COMPARISON: Chest x-ray 03/29/2022 FINDINGS: Surgical changes and devices: None. Lungs and pleura: No pleural effusions or pneumothorax. Lungs are clear. Mediastinum: Mediastinal contours appear normal. Heart size is normal. Bones and chest wall: No suspicious bony lesions. Overlying soft tissues appear unremarkable. IMPRESSION: No acute cardiopulmonary process. Reviewed by: Wood Reina MD on 03/23/2024 3:23 PM PDT Approved by: Wood Reina MD on 03/23/2024 3:23 PM PDT Station ID: [id number]
== END 2024-03-23 15:33 | disposition home or self-care (01) ==
LOC: ED 13:48
DX: U07.1 COVID-19 (principal)
CPT/HCPCS: 99283